=== PATIENT | female | born 1965 | race Caucasian/White ===

== ENCOUNTER 2017-08-26 08:46 | Outpatient (CLI) | payer OTHER | END 2017-08-26 08:47 | disposition home or self-care (01) | LOC: BICMAMMO 08:46 | PROVIDERS: ATTEND Obstetrics & Gynecology | DX: Z12.31 Encounter for screening mammogram for malignant neoplasm of breast (principal) | CPT/HCPCS: 77063; 77067 ==

== ENCOUNTER 2020-04-04 07:25 | Outpatient (CLI) | payer BC ==
--- NOTE | 2020-04-04 07:48 | ULT ---
Sonogram right upper quadrant HISTORY: Abnormal liver function tests. FINDINGS: Gallbladder has a normal appearance without stones. Common duct is 0.4 cm. Liver unremarkable without focal mass or intrahepatic biliary dilatation. Homogeneous echotexture. No free fluid. IMPRESSION : Normal right upper quadrant sonogram.
== END 2020-04-04 07:26 | disposition home or self-care (01) ==
LOC: BICULT 07:25
PROVIDERS: ATTEND Internal Medicine
DX: R74.01 Elevation of levels of liver transaminase levels (principal)
CPT/HCPCS: 76705